=== PATIENT | female | born 1990 | race Hispanic/Latino ===

== ENCOUNTER 2023-09-18 12:04 | Emergency (ER) | payer MEDICAID, SELFPAY ==
[2023-09-18] MEDS ORDERED: PRENMIS3 PO (12:09)
[2023-09-18 12:51] LABS: BASO # 0.1 10^3/uL (0.0-0.2); BASO % 0.6 % (0.0-1.0); EOS # 0.1 10^3/uL (0.0-0.5); HEMATOCRIT 31.3 % (36.0-47.0); HEMOGLOBIN 10.1 g/dl (12.0-15.5); LYMPH # 2.2 10^3/uL (1.5-5.0); LYMPH % 26.2 % (24.0-44.0); MEAN CORPUSCULAR HGB CONC 32.3 g/dl (32.0-36.5); MEAN CORPUSCULAR VOLUME 80.5 fl (80.0-96.0); MONO # 0.7 10^3/uL (0.0-0.8); MONO % 8.9 % (2.0-8.0); NEUTROPHILS # 5.2 10^3/uL (1.5-8.5); NEUTROPHILS % 63.1 % (36.0-66.0); PLATELET COUNT, AUTOMATED 296 10^3/uL (150-450); RED BLOOD COUNT 3.89 10^6/uL (4.00-5.40); WHITE BLOOD COUNT 8.3 10^3/uL (4.0-10.0)
[2023-09-18 13:20] LABS: LIPASE 44 U/L (12-53)
[2023-09-18 13:22] LABS: ALBUMIN 3.3 G/DL (3.2-5.2); ALKALINE PHOSPHATASE 103 U/L (46-116); ALT/SGPT 121 U/L (7.0-40); AST/SGOT 93 U/L (<34); BILIRUBIN,DIRECT < 0.1 MG/DL (<0.4); BILIRUBIN,TOTAL 0.2 MG/DL (0.3-1.2); BLOOD UREA NITROGEN 15 MG/DL (9-23); CALCIUM LEVEL 8.6 MG/DL (8.5-10.1); CARBON DIOXIDE LEVEL 25 MMOL/L (20-31); CHLORIDE LEVEL 107 MMOL/L (98-107); CREATININE FOR GFR 0.47 MG/DL (0.55-1.30); GLOMERULAR FILTRATION RATE > 60.0 (>60); GLUCOSE, FASTING 89 MG/DL (60-100); SODIUM LEVEL 139 MMOL/L (136-145); TOTAL PROTEIN 6.9 G/DL (5.7-8.2)
[2023-09-18 13:35] LABS: HCG, SERUM QUANTITATIVE 6234.4 MIU/ML (<4.2)
[2023-09-18] MEDS: ONDANSETRON 4MG 2ML VIAL IV ONE (13:40)
[2023-09-18] MEDS: NS 1,000 ML IV ONE (13:41)
[2023-09-18] MEDS ORDERED: FOLI1TAB11 PO (15:06)
[2023-09-18] MEDS ORDERED: PREN1CHW4 PO (15:06)
[2023-09-18] MEDS ORDERED: HOME MED LIST COMPLETE! XX SCH (15:10)
[2023-09-18] MEDS ORDERED: ONDA4TAB6 PO (16:10)
[2023-09-18 16:29] VITALS: BP 122/62; TEMP 96.4; O2SAT 100
== END 2023-09-18 16:30 | disposition home or self-care (01) ==
LOC: M ED 12:04
DX: O34.81 Maternal care for other abnormalities of pelvic organs, first trimester (principal); O21.9 Vomiting of pregnancy, unspecified; Z79.810 Long term (current) use of selective estrogen receptor modulators (SERMs); Z79.899 Other long term (current) drug therapy
CPT/HCPCS: 76801; 76817; 80048; 80076; 81001; 83690; 84702; 85025; 87086; 93976; 96361; 96374; 99284; J2405